=== PATIENT | female | born 2000 | race Caucasian/White ===

== ENCOUNTER 2020-03-20 20:26 | Emergency (ER) | payer OTHER ==
[~2020-03-20] VITALS: Ht 157.5 cm; Wt 58.2 kg
[2020-03-20] MEDS ORDERED: PREN1TAB11 PO (20:41)
[2020-03-20 21:04] LABS: BASO % 0.2 % (0.0-1.0); EOS # 0.1 10^3/uL (0.0-0.5); EOS % 0.6 % (0.0-3.0); HEMATOCRIT 40.6 % (36.0-47.0); HEMOGLOBIN 13.2 g/dl (12.0-15.5); LYMPH # 1.9 10^3/uL (1.5-5.0); LYMPH % 19.6 % (24.0-44.0); MEAN CORPUSCULAR HEMOGLOBIN 29.6 pg (27.0-33.0); MEAN CORPUSCULAR HGB CONC 32.5 g/dl (32.0-36.5); MONO # 0.6 10^3/uL (0.0-0.8); MONO % 5.7 % (0.0-5.0); NEUTROPHILS # 7.3 10^3/uL (1.5-8.5); NEUTROPHILS % 73.5 % (36.0-66.0); PLATELET COUNT, AUTOMATED 320 10^3/uL (150-450); RED BLOOD COUNT 4.46 10^6/uL (4.00-5.40); WHITE BLOOD COUNT 9.9 10^3/uL (4.0-10.0)
[2020-03-20 21:47] LABS: BLOOD UREA NITROGEN 9 MG/DL (7-18); CALCIUM LEVEL 9.2 MG/DL (8.5-10.1); CARBON DIOXIDE LEVEL 25 MEQ/L (21-32); CHLORIDE LEVEL 105 MEQ/L (98-107); CREATININE FOR GFR 0.68 MG/DL (0.55-1.30); GLOMERULAR FILTRATION RATE > 60.0 (>60); GLUCOSE, FASTING 81 MG/DL (70-100); HCG, SERUM QUANTITATIVE 132771 MIU/ML; POTASSIUM SERUM 4.1 MEQ/L (3.5-5.1); SODIUM LEVEL 136 MEQ/L (136-145)
--- NOTE | 2020-03-20 21:59 | REPVR ---
PROCEDURE INFORMATION: Exam: US First Trimester, Transabdominal Exam date and time: 03/20/2020 9:44 PM Age: 19 years old Clinical indication: Lmp or gestational age (in weeks): 9w 4d; Other: Gush of fluid; ; Additional info: Gush of fluid, 10 wks preg, TECHNIQUE: Imaging protocol: Real-time transabdominal obstetrical ultrasound of the maternal pelvis and a first trimester , less than 14 weeks 0 days, with image documentation. COMPARISON: No relevant prior studies available. FINDINGS: Gestation: Gestational sac within the uterus containing a yolk sac and pole. Embryonic/ heart rate: heartbeat is 183 bpm. Placenta: No subchorionic bleed. Amniotic fluid: Amniotic fluid is normal for gestational age. BIOMETRY: [place]-Rump length: The crown-rump length measures 28 mm suggesting an age of 9 weeks 5 days. The EDC is 10/18/2020. MATERNAL: Uterus: Unremarkable. Cervix: Unremarkable. Right adnexa: The right ovary measures 2.6 x 2.9 x 1.9 cm and demonstrates normal blood flow. Left adnexa: The left ovary measures 2.5 x 2.3 x 2.5 cm and demonstrates blood flow. Intraperitoneal space: No intraperitoneal free fluid. IMPRESSION: Single live intrauterine gestation with an estimated age of 9 weeks 5 days. The EDC is 10/18/2020. Electronically signed by: Camacho Hammer On 03/20/2020 21:59:29 PM
[2020-03-20] MEDS ORDERED: CLOTRIMAZOLE 1% VAG CR 45 GM TOP STA (22:36)
[2020-03-20] MEDS ORDERED: CLOTCRE3 TOP (22:44)
[2020-03-20] MEDS ORDERED: FLAG500T PO (22:44)
[2020-03-20] MEDS ORDERED: metroNIDAZOLE (FLAGYL) 500MG TABLET PO ONE (22:45)
[2020-03-20 22:52] VITALS: BP 117/79
[2020-03-20 23:10] LABS: CHLAMYDIA DNA AMPLIFICATION NEGATIVE (NEGATIVE); GC DNA AMPLIFICATION NEGATIVE (NEGATIVE)
== END 2020-03-20 22:53 | disposition home or self-care (01) ==
LOC: M ED 20:26
DX: O23.591 Infection of other part of genital tract in pregnancy, first trimester (principal); B37.3 Candidiasis of vulva and vagina; Z3A.09 9 weeks gestation of pregnancy

== ENCOUNTER 2020-10-17 19:18 | Outpatient (CLI) | payer OTHER ==
[~2020-10-17] VITALS: Ht 157.5 cm; Wt 82.7 kg
[~2020-10-17 19:18] MED LIST: CLOTCRE3 TOP; FLAG500T PO; PREN1TAB11 PO
[2020-10-17 19:39] VITALS: BP 122/69
[2020-10-17 20:15] VITALS: BP 136/80
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
== END 2020-10-17 20:35 | disposition home or self-care (01) ==
LOC: M LDO 19:18
PROVIDERS: ATTEND Obstetrics & Gynecology
DX: O36.8130 Decreased fetal movements, third trimester, not applicable or unspecified (principal); Z3A.40 40 weeks gestation of pregnancy; O48.0 Post-term pregnancy; O99.820 Streptococcus B carrier state complicating pregnancy; Z91.410 Personal history of adult physical and sexual abuse; Z91.018 Allergy to other foods; Z79.899 Other long term (current) drug therapy
CPT/HCPCS: 59025; 76815; G0378; G0463

== ENCOUNTER 2020-10-22 06:27 | Inpatient (IN) | payer OTHER ==
[2020-10-22] VITALS (20 sets, daily range): BP systolic 97–143; BP diastolic 53–89
[~2020-10-22] VITALS: Ht 157.5 cm; Wt 83.6 kg
[2020-10-22] MEDS ORDERED: TRANEXAMIC ACID INJection 1,000 MG in NS 100 ML IV PRN (08:50)
[2020-10-22] MEDS ORDERED: CARBOPROST TROMETHAMINE 250 MCG/ML AMP IM PRN (08:50)
[2020-10-22] MEDS ORDERED: METHYLERGONOVINE MALEATE 0.2 MG/ML VIAL (J2210) IM PRN (08:50)
[2020-10-22] MEDS ORDERED: OXYTOCIN DRIP 30 UNITS in IV 1 EA IV SCH ×2 (08:50→19:00)
[2020-10-22] MEDS ORDERED: LIDOCAINE 1% MDV 20ML VIAL INFIL PRN (08:50)
[2020-10-22] MEDS ORDERED: OXYTOCIN DRIP 30 UNITS in IV 1 EA IV PRN ×4 (08:50)
[2020-10-22] MEDS ORDERED: PENICILLIN G POTASSIUM IV 5 MU in D5W MINI-BAG PLUS 100 ML IV ONE (09:20)
[2020-10-22 09:33] LABS: HEMATOCRIT 38.2 % (36.0-47.0); HEMOGLOBIN 12.5 g/dl (12.0-15.5); MEAN CORPUSCULAR HEMOGLOBIN 30.3 pg (27.0-33.0); MEAN CORPUSCULAR HGB CONC 32.7 g/dl (32.0-36.5); MEAN CORPUSCULAR VOLUME 92.5 fl (80.0-96.0); PLATELET COUNT, AUTOMATED 276 10^3/uL (150-450); RED BLOOD COUNT 4.13 10^6/uL (4.00-5.40); WHITE BLOOD COUNT 11.8 10^3/uL (4.0-10.0)
[2020-10-22] MEDS: LR 1,000 ML IV SCH ×2 (10:01→22:08)
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
[2020-10-22] MEDS: PENICILLIN G POTASSIUM IV 2.5 MU in IV 1 EA IV SCH ×3 (14:05→22:08)
--- NOTE | 2020-10-22 16:58 | IPNPDOC ---
Obstetrical Progress Note Date of Service Oct 22, 2020 Subjective Patient lopez balloon out at 1604, pt requesting SVE. Pt having painful contractions every 2-3 min, declining all pain management at this time. Overall doing well and without complaint. Objective Vital Signs Date Time Temp Pulse Resp B/P (MAP) Pulse Ox O2 Delivery O2 Flow Rate FiO2 10/22/20 16:12 98.0 78 18 117/59 (78) Room Air Assessment Heart Rate (FHR): 140 Variability: Moderate Accelerations: Positive Decelerations: None Heart Rate Tracing: Category I Tocometer Contractions: Yes Frequency: regular Duration: greater than 60 seconds Strength: palpated as moderate Sterile Vaginal Examination Dilation: 4 cm Effacement (%): 70% Station: -2 Cervical Consistency: Soft Cervical Position: Middle Postion/Presentation: Cephalic presentation Assessment and Plan Status: Reassuring Group B Streptococcus: Positive Anticipate: Vaginal Delivery Additional Comments 20yo at 41w0d admitted for IOL for post dates -Declining meds for pain management at this time. Pain managed by walk ing/shower. counseled on benefits of pain management, as well as limitations regarding timing of administration. Pt aware and would like to avoid for now. -SVE /-2, pt s/p 2 doses of PCN and interested in AROM. Attempted, however pt having difficulty tolerating exam. Will recheck again in a few hours and attempt again at that time. Pt continues to contract regularly on her own, will augment with pitocin if ctx >3 min apart. Pt and in agreement with plan. TALHA JENKINS M.D. Oct 22, 2020 16:58
--- NOTE | 2020-10-22 22:53 | IPNPDOC ---
Obstetrical Progress Note Date of Service Oct 22, 2020 Subjective 20yo at 41w0d admitted for IOL for post dates. Resting Objective Vital Signs Date Time Temp Pulse Resp B/P (MAP) Pulse Ox O2 Delivery O2 Flow Rate FiO2 10/22/20 20:01 95 97/56 (70) 10/22/20 18:50 Room Air 10/22/20 18:06 18 10/22/20 16:12 98.0 Assessment Heart Rate (FHR): 140 Variability: Moderate Accelerations: Positive Decelerations: Late (occasional - resolved with position changes) Tocometer Contractions: Yes Frequency: regular (q5-7 min ) Duration: less than 60 seconds Strength: palpated as mild Sterile Vaginal Examination Dilation: 4 cm Effacement (%): 50% Station: -2 Cervical Consistency: Soft Cervical Position: Middle Postion/Presentation: Cephalic presentation Assessment and Plan Status: Reassuring (A/P: SVE unchanged, offered reattempt at AROM at 2200, scant clear fluid noted. Cat 1 FHT currently. Pitocin at 4mU. Continue to titrate. Pt declining all pain meds at this time. Will continue to monitor close ly. ) Group B Streptococcus: Positive Additional Comments A/P: SVE unchanged, AROM performed at 2200 with scant clear fluid noted. Pitocin at 4mU, will continue to titrate. Pt declines pain medication at this time. TALHA JENKINS M.D. Oct 22, 2020 22:53
[2020-10-23] VITALS (54 sets, daily range): BP systolic 88–162; BP diastolic 49–97
[2020-10-23] MEDS ORDERED: BUTORPHANOL 2 MG/ML INJ (J0595) IV ONE (00:50)
[2020-10-23] MEDS ORDERED: PROMETHAZINE INJ 25 MG/ML VIAL (J2550) IV ONE (00:50)
[2020-10-23] MEDS: LR 1,000 ML IV SCH (01:00)
[2020-10-23] MEDS: PENICILLIN G POTASSIUM IV 2.5 MU in IV 1 EA IV SCH ×2 (02:00→06:00)
[2020-10-23] MEDS ORDERED: FENTANYL 2MCG/ML ROPIVACAINE 0.2% IN 0.9% NACL 100ML IVBAG As Ordered ONE (02:29)
[2020-10-23] MEDS ORDERED: diphenhydrAMINE 50MG/ML VIAL (J1200) IV PRN (03:05)
[2020-10-23] MEDS ORDERED: FENTANYL/ROPIVACAINE/NACL BAG 100 ML EPIDURAL SCH (03:05)
[2020-10-23] MEDS ORDERED: EPIDURAL COMMENT XX SCH (03:05)
[2020-10-23] MEDS ORDERED: ONDANSETRON 4MG/2ML VIAL IV PRN (03:05)
[2020-10-23] MEDS ORDERED: EPIDURAL/PCA KEYS XX PRN (03:05)
[2020-10-23] MEDS ORDERED: LACTATED RINGER'S 1000 ML IV PRN (03:05)
[2020-10-23] MEDS ORDERED: REFRIGERATOR IV KEYS XX PRN (03:05)
[2020-10-23] MEDS ORDERED: NALOXONE INJ 0.4MG/1ML VIAL (J2310 PER 1MG) IV PRN (03:05)
[2020-10-23] MEDS: ePHEDrine SULFATE 25 MG/5 ML(5MG/ML) SYRINGE IV PRN ×5 (04:30→05:51)
[2020-10-23] MEDS ORDERED: ePHEDrine INJ 50 MG/ML VIAL IV STA (05:15)
[2020-10-23] MEDS ORDERED: ePHEDrine INJ 50 MG/ML VIAL IV PRN (06:25)
--- NOTE | 2020-10-23 07:30 | IPNPDOC ---
Obstetrical Progress Note Date of Service Oct 23, 2020 Subjective 20yo at 41w1d admitted for IOL for post dates. Resting comfortably with epidural Objective Vital Signs Date Time Temp Pulse Resp B/P (MAP) Pulse Ox O2 Delivery O2 Flow Rate FiO2 10/23/20 06:50 81 100/57 (71) 10/23/20 04:30 16 10/22/20 18:50 Room Air 10/22/20 16:12 98.0 Assessment Heart Rate (FHR): 150 Variability: Moderate Accelerations: Positive Decelerations: None Heart Rate Tracing: Category I Tocometer Contractions: Yes (q3min) Assessment and Plan Status: Reassuring Additional Comments Pt comfortable with epidural. Last exam by nurse at approximately 0330 unchanged at 4/50/-2. S/p AROM at 2200 with scant clear fluid noted. Pt with periods of Cat 2 tracing with occasional late decelerations that resolve with position changes. Currently Cat 1. Continue IOL with pitocin, currently at 10mU. Anticipate vaginal delivery TALHA JENKINS M.D. Oct 23, 2020 07:29
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
[2020-10-23] MEDS ORDERED: PROMETHAZINE 25 MG TAB PO PRN (10:55)
[2020-10-23] MEDS ORDERED: ACETAMINOPHEN 500 MG TAB PO PRN (10:55)
[2020-10-23] MEDS ORDERED: RHOGAM 300 MCG (1500 IU) INJ (J2790) IM SCH (10:55)
[2020-10-23] MEDS ORDERED: IBUPROFEN 600MG TAB PO PRN (10:55)
[2020-10-23] MEDS ORDERED: OXYTOCIN DRIP 30 UNITS in IV 1 EA IV SCH (10:55)
[2020-10-23] MEDS ORDERED: MEASLES,MUMPS,RUBELLA VACCINE INJ (MMR-II) (90707) SC SCH (10:55)
[2020-10-23] MEDS ORDERED: DOCUSATE SODIUM 100MG CAPSULE PO PRN (10:55)
[2020-10-23] MEDS ORDERED: ACETAMINOPHEN TAB 650MG DOSE (2X325MG) PO PRN (10:55)
[2020-10-23] MEDS ORDERED: DIBUCAINE 1% OINTMENT 30GM TOP PRN (10:55)
--- NOTE | 2020-10-23 11:02 | DNPDOC ---
[facility] Delivery Note Delivery Note DATE OF DELIVERY: 23Oct2020 at ~1045 PREDELIVERY DIAGNOSIS: 41+1 weeks gestation and IOL for late term POST DELIVERY DIAGNOSIS: Delivered. PROCEDURE: Spontaneous vaginal delivery PRECISION HONING MACHINE OPERATOR: Dr. Gee ANESTHESIA: Neuraxial (epidural) ESTIMATED BLOOD LOSS: 300 FINDINGS: 7lb 5oz female , Score 8/9 DELIVERY SUMMARY: Carol progressed steadily during her IOL, underwent AROM, IV pitocin, and received an epidural. This morning she reported significantly increased pelvic pressure, was examined by the RN, found to be C/C/+1, and had a desire to push. The bed was broken down and she was prepped for delivery. With excellent pushing effort over about only 20 minutes her baby delivered. Presentation was direct KAYCEE with restitution to ROT. The left anterior shoulder delivered with gentle traction followed easily by the remainder of the body. The infant was dried and stimulated on the field and a bulb suction was used. The was placed on the maternal abdomen and cried vigorously. The three vessel umbilical cord was clamped and cut by the FOB after appropriate time delay and under my direction. Third stage was completed with gentle traction on on the cord and it was productive of an intact placenta. The uterus was firmed with massage and pitocin was administered IV bolus. Inspection of the cervix, vagina, labia, and perineum revealed a small, right vaginal sidewall abrasion that was hemostatic and did not require repair. The fundus was palpated again and was firm. All counts correct. Mother and stable when I left the room. DO ROBBIE Arellano CHRISTOPHER J. DO Oct 23, 2020 11:02
[2020-10-23] MEDS: PRENATAL VITAMINS CHEWABLE TABLET PO SCH (12:50)
[2020-10-23] MEDS: IBUPROFEN 800 MG TAB PO PRN ×2 (12:52→21:10)
[2020-10-24 05:52] VITALS: BP 107/64
[2020-10-24] MEDS ORDERED: IBUP80TA PO (07:59)
[2020-10-24] MEDS ORDERED: ACET-683 PO (07:59)
[2020-10-24] MEDS ORDERED: DIBU28OI2 TOP (07:59)
--- NOTE | 2020-10-24 08:30 | DS.PDOC ---
Discharge Summary General Date of Admission Oct 22, 2020 at 06:27 Date of Discharge October 24, 2020 Discharge Summary HOSPITAL COURSE: Ms. Desai is a 20 yo G5 now P1 who underwent an uncomplicated on the morning of 23Oct2020 after being admitted for an IOL for late term gestation on 22Oct2020. Her course was unremarkable. On her day of discharge she met all appropriate discharge criteria. She was ambulating, voiding, tolerating a regular diet, and had minimal lochia. DISCHARGE MEDICATIONS: Please see below. ALLERGIES: Please see below. PHYSICAL EXAMINATION ON DISCHARGE: VITAL SIGNS: Please see below. GENERAL: AAOX3, NAD ABDOMINAL EXAMINATION: Fundus firm at U-2. No fundal tenderness EXTREMITIES: No edema PSYCHIATRIC EXAMINATION: Affect appropriate LABORATORY DATA: Please see below. ACTIVITY: Pelvic rest for 6 weeks DIET: Regular DISCHARGE PLAN: Discharge home DISPOSITION: Discharge home on 24Oct2020 DISCHARGE INSTRUCTIONS: 1. Nothing in the vagina for 6 weeks ITEMS TO FOLLOWUP ON ON OUTPATIENT: 1. Call to schedule a visit for 6 weeks post delivery DISCHARGE CONDITION: Stable. TIME SPENT ON DISCHARGE: Greater than 20 minutes. Ivette Gee DO Vital Signs/I&Os Vital Signs Date Time Temp Pulse Resp B/P (MAP) Pulse Ox O2 Delivery O2 Flow Rate FiO2 10/24/20 05:52 97.7 97 18 107/64 (78) 10/23/20 18:00 97 Room Air I&O- Last 24 Hours up to 6 AM 10/24/20 05:59 Intake Total 4784 ml Output Total 1050 ml Balance 3734 ml Discharge Medications Scheduled Vit No.124/Iron/Folic ( Vitamin Tablet) 1 Each Tablet, 1 TAB PO DAILY, (Reported) Scheduled PRN Acetaminophen (Acetaminophen) 500 Mg Tablet, 1,000 MG PO Q6HP PRN for PAIN LEVEL 6-10 Dibucaine (Dibucaine) 28 Gm Oint...g., 0 DOSE TOP Q4H PRN for PERINEUM PAIN Ibuprofen (Ibuprofen) 800 Mg Tablet, 800 MG PO Q8HP PRN for PAIN LEVEL 6-10 Allergies Coded Allergies: Kiwi (Verified Allergy, Severe, tongue swelling, 10/22/20) IVETTE GEE DO Oct 24, 2020 08:30
[2020-10-24] MEDS: PRENATAL VITAMINS CHEWABLE TABLET PO SCH (10:15)
== END 2020-10-24 18:45 | disposition home or self-care (01) | DRG 807 ==
LOC: M LDI 06:27 → M OBS 10-23 13:08
PROVIDERS: ADMIT Obstetrics & Gynecology; ATTEND Obstetrics & Gynecology
PROC: 3E033VJ Introduction of Other Hormone into Peripheral Vein, Percutaneous Approach (ICD-10-PCS; 2020-10-22)
PROC: 10907ZC Drainage of Amniotic Fluid, Therapeutic from Products of Conception, Via Natural or Artificial Opening (ICD-10-PCS; 2020-10-22)
PROC: 10E0XZZ Delivery of Products of Conception, External Approach (ICD-10-PCS; principal; 2020-10-23)
DX: O48.0 Post-term pregnancy (principal); Z37.0 Single live birth; Z3A.41 41 weeks gestation of pregnancy; O99.824 Streptococcus B carrier state complicating childbirth

== ENCOUNTER 2021-10-18 10:40 | Emergency (ER) | payer OTHER ==
[~2021-10-18] VITALS: Ht 154.9 cm; Wt 57.7 kg
[~2021-10-18 10:40] MED LIST changes: +ACET-683 PO; +DIBU28OI2 TOP; +IBUP80TA PO
[2021-10-18] MEDS ORDERED: MECL1TAB31 PO (13:28)
[2021-10-18] MEDS ORDERED: MECLIZINE 25 MG TABLET PO ONE (14:05)
[2021-10-18] MEDS ORDERED: ONDANSETRON 4MG/2ML VIAL IV ONE (14:05)
[2021-10-18] MEDS ORDERED: NS 1,000 ML IV ONE (14:05)
[2021-10-18 14:55] VITALS: BP 105/68
[2021-10-18 14:58] LABS: BASO % 0.4 % (0.0-1.0); EOS # 0.2 10^3/uL (0.0-0.5); EOS % 1.8 % (0.0-3.0); HEMATOCRIT 41.7 % (36.0-47.0); HEMOGLOBIN 13.6 g/dl (12.0-15.5); LYMPH # 2.5 10^3/uL (1.5-5.0); LYMPH % 30.9 % (24.0-44.0); MEAN CORPUSCULAR HGB CONC 32.6 g/dl (32.0-36.5); MEAN CORPUSCULAR VOLUME 92.1 fl (80.0-96.0); MONO # 0.6 10^3/uL (0.0-0.8); MONO % 6.9 % (2.0-8.0); NEUTROPHILS # 4.9 10^3/uL (1.5-8.5); NEUTROPHILS % 59.8 % (36.0-66.0); PLATELET COUNT, AUTOMATED 372 10^3/uL (150-450); RED BLOOD COUNT 4.53 10^6/uL (4.00-5.40); WHITE BLOOD COUNT 8.2 10^3/uL (4.0-10.0)
[2021-10-18 15:29] LABS: FREE THYROXINE INDEX 2.9 % (1.3-4.8); MAGNESIUM LEVEL 2.2 MG/DL (1.8-2.4); THYROID STIMULATING HORMONE 0.882 uIU/ML (0.358-3.740); THYROXINE (T4) 8.4 UG/DL (4.5-12.0)
== END 2021-10-18 16:33 | disposition home or self-care (01) ==
LOC: M ED 10:40
DX: R42 Dizziness and giddiness (principal); Z91.018 Allergy to other foods
CPT/HCPCS: 80047; 83735; 84436; 84443; 84479; 84702; 85025; 96361; 96374; 99284; J2405